=== PATIENT | female | born 1960 | race Asian ===

== ENCOUNTER 2018-08-24 17:16 | Emergency (ER) | payer OTHER ==
[~2018-08-24] VITALS: Ht 154.4 cm; Wt 44.0 kg
--- NOTE | 2018-08-24 17:25 | NUR ---
ED Nurse Note: walked in to ED due to pain on lower back and pt hitted her head. per pt, fall with client to the ground at work this afternoon. patient reports of 4/10 lower back pain. patient is alert and oriented x4, ambulatory with a steady gait, VSS
[2018-08-24 17:30] VITALS: BP 134/86
[2018-08-24] MEDS ORDERED: TYLENOL EXTRA500 MG ORAL (18:44)
--- NOTE | 2018-08-24 18:44 | Emergency Room Report ---
History of Present Illness General Chief Complaint: Multiple Trauma/Fall Source: Patient Present Illness HPI 58-year-old female presents to the emergency department complaining of 4 out of 10 in severity pain to the posterior left hip as well as the left side of her head since this afternoon. 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 Patient states she bumped her head on the door and then fell onto her head. Patient denies loss of consciousness she denies nausea or vomiting. Patient reports some initial mild dizziness which resolved after minute. Patient denies taking blood thinning medications. She denies midline neck or back pain. Patient reports bruise to the right forearm. States left hip pain is exacerbated upon standing or walking. She denies previous injury to this extremity. Allergies: Coded Allergies: No Known Allergies (Unverified , 08/24/18) Patient History Past Medical History: see triage record Past Surgical History: none Pertinent Family History: none Last Menstrual Period: menopause Now: No Reviewed Nursing Documentation: PMH: Agreed; PSxH: Agreed Nursing Documentation-PMH Past Medical History: No Stated History Review of Systems All Other Systems: negative except mentioned in HPI Physical Exam Vital Signs Date Time Temp Pulse Resp B/P (MAP) Pulse Ox O2 Delivery O2 Flow Rate FiO2 08/24/18 17:21 97.7 72 18 134/86 97 Room Air Sp02 EP Interpretation: reviewed, normal General Appearance: no apparent distress, alert, GCS 15, non-toxic Head: normocephalic, atraumatic Eyes: bilateral eye normal inspection, bilateral eye PERRL ENT: hearing grossly normal, normal voice Neck: full range of motion, no bony tend Respiratory: lungs clear, normal breath sounds, speaking full sentences Cardiovascular #1: regular rate, rhythm Musculoskeletal: back normal, gait/station normal, normal range of motion, tender - lateral left hip and posterior portion of the left hip, pt. ambulatory , no bruising noted. no midline neck or back ttp. Neurologic: alert, oriented x3, responsive, motor strength/tone normal, sensory intact, normal gait, speech normal, other - no gross motor weakness. , grossly normal Psychiatric: judgement/insight normal Skin: no rash, warm/dry, well hydrated, other - bruise to the right forearm Medical Decision Making PA Attestation Dr. Laurent is my supervising Physician whom patient management has been discussed with. Diagnostic Impression: Primary Impression: Contusion of hip, left Qualified Codes: S70.02XA - Contusion of left hip, initial encounter Additional Impression: Contusion of head Qualified Codes: S00.93XA - Contusion of unspecified part of head, initial encounter ER Course 58-year-old female presents to the emergency department complaining of 4 out of 10 in severity pain to the posterior left hip as well as the left side of her head since this afternoon. 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 Patient states she bumped her head on the door and then fell onto her head. Patient denies loss of consciousness she denies nausea or vomiting. Patient reports some initial mild dizziness which resolved after minute. Patient denies taking blood thinning medications. She denies midline neck or back pain. Patient reports bruise to the right forearm. States left hip pain is exacerbated upon standing or walking. She denies previous injury to this extremity. Ddx considered but are not limited to Fracture, dislocation, contusion, concussion Sprain/Strain/Spasm, hematoma Vital signs: are WNL, pt. is afebrile H&PE are most consistent with contusion, no evidence of focal neurological deficit, no loss of consciousness. ORDERS: none required at this time. PE and HPI do not indicate CT at this time. ED INTERVENTIONS: -D/w Pt. reasoning for not doing Head CT, also discussed red flag symptoms to keep an eye out for that would indicate prompt return to the ED. - Pt. verbalizes turner understanding and agreement with proposed treatment plan. DISCHARGE: At this time pt. is stable for d/c to home. Will provide printed patient care instructions, and any necessary prescriptions. Care plan and follow up instructions have been discussed with the patient prior to discharge. Other X-Ray Diagnostic Results Other X-Ray Diagnostic Results : X-Ray ordered: Left Hip # of Views/Limited Vs Complete: 2 View Indication: Pain EP Interpretation: Yes JOCELYNE Xray: Interpretation reviewed, by supervising MD, and agrees with findings. Interpretation: no dislocation, no soft tissue swelling, no fractures Impression: No acute disease Electronically Signed by: Raiza Cleary PA-C Last Vital Signs Date Time Temp Pulse Resp B/P (MAP) Pulse Ox O2 Delivery O2 Flow Rate FiO2 08/24/18 17:30 97.7 72 18 134/86 97 Room Air Disposition: HOME, SELF-CARE Condition: Stable Scripts Acetaminophen* (TYLENOL EXTRA STRENGTH*) 500 Mg Tablet 500 MG ORAL Q6H, #30 TAB 0 Refills Prov: Raiza Cleary 08/24/18 Referrals: NOT CHOSEN IPA/MD,REFERRING (PCP) Departure Forms: Return to Work Return to Work Date: Aug 27, 2018 Work Restrictions: No Heavy Lifting Other Restrictions: light duty x 1 week. May return Sooner if Symptoms have resolved. Return to Full Activity: Aug 31, 2018 Patient Instructions: Contusion, [id number] Additional Instructions: Take medications as directed. Follow up with a Primary Care Provider in 3-5 days, even if your symptoms have resolved. --Please review list of primary care clinics, if you do not already have a primary care provider Return sooner to ED if new symptoms occur, or current symptoms become worse. - Please note that this Emergency Department Report was dictated using [email or web address] speculator technology software, occasionally this can lead to erroneous entry secondary to interpretation by the dictation equipment. Raiza Cleary Aug 24, 2018 18:44
[2018-08-24 18:54] VITALS: BP 122/71
--- NOTE | 2018-08-24 18:55 | NUR ---
ER DISCHARGE NOTE: Patient is cleared to be discharged per ERMD, pt is aox4, on room air, with stable vital signs. pt was given dc and prescription instructions, pt was able to verbalize understanding, pt id band removed. pt is able to ambulate with steady gait. pt took all belongings.
--- NOTE | 2018-08-25 09:51 | Diagnostic Imaging Report ---
Indication: Left hip pain, status post fall Technique: 2 views of the left hip Comparison: none Findings: No acute fractures. No dislocations. The joint spaces are preserved Impression: Negative
== END 2018-08-24 18:56 | disposition home or self-care (01) ==
LOC: EMR 18:04
DX: S70.02XA Contusion of left hip, initial encounter (principal); S00.93XA Contusion of unspecified part of head, initial encounter; S50.11XA Contusion of right forearm, initial encounter; W19.XXXA Unspecified fall, initial encounter; Y92.89 Other specified places as the place of occurrence of the external cause; Y99.0 Civilian activity done for income or pay
CPT/HCPCS: 73502; 99283